=== PATIENT | female | born 1980 | race American Indian/Alaskan Native ===

== ENCOUNTER 2018-09-23 06:00 | Day surgery (SDC) | payer OTHER, BC ==
[2018-09-23 06:23] VITALS: BMI 31.4
[2018-09-23 06:58] VITALS: RESP 18
[2018-09-23] MEDS ORDERED: MethylPREDNISolone Depo 40 mg/ml Inj ONE (07:11)
[2018-09-23] MEDS ORDERED: Bupivacaine HCl 0.5% PF (10 ml) Inj ONE (07:12)
[2018-09-23] MEDS ORDERED: Bupivacaine HCl 0.25% PF (30 ml) Inj ONE (07:12)
[2018-09-23] MEDS ORDERED: Lidocaine 1% Inj (20ml) ONE (07:12)
[2018-09-23] MEDS ORDERED: Midazolam 2 MG/2 ML VIAL ONE ×2 (07:29→07:53)
[2018-09-23] MEDS ORDERED: Lactated Ringer's 1,000 ML IV ONE (07:45)
[2018-09-23] MEDS ORDERED: Iohexol 300 10 ML ONE (07:46)
[2018-09-23] MEDS ORDERED: Bupivacaine HCl 0.25% PF (30 ml) Inj IJ ONE (07:55)
[2018-09-23] MEDS ORDERED: MethylPREDNISolone Depo 40 mg/ml Inj IM ONE (07:55)
[2018-09-23] MEDS ORDERED: Lidocaine 1% Inj (20ml) IJ ONE (07:55)
[2018-09-23] MEDS ORDERED: HYDROmorphone 0.5 mg/0.5 ml ISec IVP PRN (08:12)
[2018-09-23] MEDS ORDERED: Lactated Ringer's 1,000 ML IV SCH (08:15)
[2018-09-23 08:20] VITALS: O2SAT 100
--- NOTE | 2018-09-23 08:43 | CP.SDSHP ---
Same Day Surgery H & P - History Proposed Procedure: Right thigh calcification injection. Right psoas muscle injection. Right femoral lateral cutaneous nerve block Pre-Op Diagnosis: Right thigh pain - Previous Medical/Surgical History Pain: 8.Very Severe - Allergies Allergies: Allergies No Known Allergies Allergy (Verified 04/05/18 08:02) - Physical Exam Vital Signs: Vital Signs 09/23/18 09/23/18 09/23/18 06:49 06:57 08:05 Temperature 98.7 F 97.5 F L Pulse Rate 67 67 62 Respiratory 18 18 Rate Blood Pressure 134/82 133/66 O2 Sat by Pulse 97 100 Oximetry 09/23/18 08:20 Temperature 97.6 F Pulse Rate 59 L Respiratory 18 Rate Blood Pressure 100/57 L O2 Sat by Pulse 100 Oximetry Neuro: WNL Heart: WNL Lungs: WNL - Impression Impression: Right thigh pain Pt. Evaluated Today:Candidate for Anesthesia & Procedure: Yes Short Stay Discharge - Short Stay Discharge Admitting Diagnosis/Reason for Visit: RIGHT THIGH PAIN Disposition: HOME/ ROUTINE Referrals: Saad Nava DO [Primary Care Provider] -
--- NOTE | 2018-09-23 09:49 | RAD ---
Date of service: 09/23/2018 PROCEDURE: Intraoperative Fluoroscopy. HISTORY: PAIN MANAGEMENT FINDINGS: Fluoroscopic assistance was provided. Fluoroscopy time = 8.7 sec. Radiation dose = 1.78 mGy. Please refer to the operative report from SOURAV Soler.
[2018-09-23] MEDS ORDERED: Oxycodone/Acetaminophen 5/325 mg Tab PO STA (11:18)
[2018-09-23 11:31] VITALS: BP 118/72; PULSE 58; TEMP 98
--- NOTE | 2018-09-23 20:20 | OP ---
PROCEDURE DATE: 09/23/2018 PREOPERATIVE DIAGNOSIS: Right hip and thigh pain. POSTOPERATIVE DIAGNOSIS: Right hip and thigh pain. PROCEDURES: Right ultrasound-guided injection of the right thigh muscle and also right lateral femoral cutaneous nerve block. SURGEON: Slim Louise MD TYPE OF ANESTHESIA: Monitored anesthesia care. ANESTHESIA ADMINISTERED BY: Zuri Albright MD COMPLICATIONS: None. SPECIMENS: None. DESCRIPTION OF PROCEDURE: After we had a discussion of the procedure with the patient including its risks, benefits, alternatives, outcome data, possibility of no effect or increased pain, the patient consented to the procedure. She denied any recent infection, bleeding tendencies, or being on anticoagulants. Decision was then made to proceed to the OR. The patient was placed on the fluoroscopy table in a supine position with a pillow underneath her knees. The right groin was then prepped and draped in the usual sterile fashion and sterile technique was adhered to during the entire procedure. An anterior-posterior fluoroscopy was taken of the right hip to identify the location of the calcification. After doing so, the area was marked. Using ultrasound, the calcification was observed at approximately 3 cm depth. Using a 22-gauge 4-inch Stimuplex needle, approximately 6 mL of 0.25% Marcaine and Depo-Medrol mixture was deposited both superior and posterior to the calcification. The psoas muscles were then identified and visualized in ultrasound. Using the same needle, approximately 10 mL of 0.25 Marcaine and Depo-Medrol mixture was distributed both at the top and the bottom of the psoas muscle. The medication was observed surrounding the psoas muscle. Then, the lateral femoral cutaneous nerve was observed at the superolateral quadrant of the sartorius muscle. A 25-gauge 1.5-inch needle was inserted towards the nerve and approximately 3 mL of 0.25 Marcaine and Depo-Medrol mixture was injected around this nerve. At the end of the case, the patient's thigh was cleaned and dry bandage was applied. The patient was then transferred to the recovery area in good condition without any signs of CIRCULATOR toxicity or any neurological deficit. She will be following in our office in approximately two to four weeks. Slim Louise MD
== END 2018-09-23 11:30 | disposition home or self-care (01) ==
LOC: H.OPSURG 06:00
PROVIDERS: ATTEND Anesthesiology
DX: M79.651 Pain in right thigh (principal); M25.551 Pain in right hip
CPT/HCPCS: 64447; J1030; J2250; J3010; J7120